=== PATIENT | female | born 1995 | race Caucasian/White ===

== ENCOUNTER 2021-04-30 17:05 | Inpatient (IN) | payer BC ==
[2021-04-30] MEDS ORDERED: Promethazine HCl 25 MG/ML VIAL IM PRN (18:14)
[2021-04-30] MEDS ORDERED: Ibuprofen 800 MG TAB PO PRN (18:14)
[2021-04-30] MEDS ORDERED: hydrALAZINE 20 MG/ML VIAL SLOW IVP PRN (18:14)
[2021-04-30] MEDS ORDERED: Methylergonovine 0.2 MG/ML VIAL IM PRN (18:14)
[2021-04-30] MEDS ORDERED: Misoprostol 200 MCG TAB PR PRN (18:14)
[2021-04-30] MEDS ORDERED: Acetaminophen 500 MG TAB PO PRN (18:14)
[2021-04-30] MEDS ORDERED: Lidocaine 1% (PF) 30 ML VIAL SC PRN (18:14)
[2021-04-30] MEDS ORDERED: HYDROcodone/Acetaminophen 5/325 mg Tablet PO PRN ×2 (18:14)
[2021-04-30] MEDS ORDERED: Carboprost 250 MCG/ML AMP IM PRN (18:14)
[2021-04-30] MEDS ORDERED: Ondansetron PF 4 MG/2 ML Vial IVP PRN (18:14)
[2021-04-30] MEDS ORDERED: Diphenoxylate HCl/Atropine Tablet PO PRN ×2 (18:14)
[2021-04-30] MEDS ORDERED: Butorphanol Tartrate 1 MG/ML VIAL SLOW IVP PRN (18:14)
[2021-04-30] MEDS ORDERED: Zolpidem Tartrate 5 MG TAB PO PRN (18:14)
[2021-04-30] MEDS ORDERED: Docusate 100 MG CAP PO PRN (18:14)
[2021-04-30] MEDS ORDERED: NS w/ Oxytocin 30 units 500 ML IV SCH ×2 (18:15→19:15)
[2021-04-30 18:34] VITALS: BMI 27.6
[2021-04-30] MEDS: Lactated Ringer's 1,000 ML IV SCH (20:14)
[2021-04-30 22:12] LABS: Hemoglobin 8.6 g/dL (12.0-15.5); Mean Corpuscular HGB CONC 29.4 g/dL (32.0-36.0); Mean Corpuscular Hemoglobin 22.5 pg (27.0-33.0); Mean Corpuscular Volume 76.5 fl (81.6-98.3); Mean Platelet Volume 11.1 fl (7.4-10.4); Platelet Count 196 10x3/uL (150-450); RBC Distribution Width 18.9 % (11.5-14.5); Red Blood Cell (RBC) Count 3.83 10x6/uL (3.90-5.03); White Blood Cell (WBC) Count 7.8 10x3/uL (3.5-10.5)
[2021-04-30 22:43] LABS: Syphilis Antibody Nonreactive (Nonreactive); Syphilis Antibody Index 0.03 S/CO (<1.00 Non-Reactive)
[2021-04-30 22:43] LABS: Hep B Surf Ag Non-Reactive S/CO (NonReactive)
[2021-04-30 22:58] LABS: HBSAg Index 0.21 S/CO (0-0.99)
[2021-05-01 04:34] LABS: SARS-CoV-2 NAA Rapid Test Not Detected (NotDetected)
[2021-05-01] MEDS ORDERED: Fentanyl 2 mcg/Bup 0.1% Cadd 100 ML ONE (08:27)
[2021-05-01] MEDS: Lactated Ringer's 1,000 ML IV SCH (10:00)
[2021-05-01] MEDS ORDERED: Misoprostol 200 MCG TAB ONE (10:11)
[2021-05-01] MEDS ORDERED: ePHEDrine Sulfate 50 MG/10 ML VIAL SLOW IVP PRN (10:17)
[2021-05-01] MEDS ORDERED: Hydrocerin (Eucerin) Cream 120 gm Jar TOP PRN (10:17)
[2021-05-01] MEDS ORDERED: diphenhydrAMINE 50 MG/ML VIAL IVP PRN (10:17)
[2021-05-01] MEDS ORDERED: Naloxone HCl 0.4 mg/ml Vial IVP PRN ×2 (10:17)
[2021-05-01] MEDS ORDERED: Acetaminophen 325 MG TAB PO PRN (10:17)
[2021-05-01] MEDS ORDERED: Ondansetron PF 4 MG/2 ML Vial IVP PRN ×2 (10:17→13:10)
[2021-05-01] MEDS ORDERED: Lactated Ringer's 500 ML IV PRN (10:17)
[2021-05-01] MEDS ORDERED: Promethazine HCl 25 MG/ML VIAL IM PRN ×2 (10:17→13:10)
[2021-05-01] MEDS ORDERED: Communication Order-Pharmacy FS SCH (10:30)
[2021-05-01] MEDS ORDERED: Fentanyl 2 mcg/Bupivacaine 0.1% Cassette 100 ML EPIDURAL SCH (10:30)
[2021-05-01] MEDS ORDERED: diphenhydrAMINE 25 MG CAP PO PRN (13:10)
[2021-05-01] MEDS ORDERED: hydrALAZINE 20 MG/ML VIAL SLOW IVP PRN (13:10)
[2021-05-01] MEDS ORDERED: Preparation H Ointment 28 GM TUBE PR PRN (13:10)
[2021-05-01] MEDS ORDERED: Misoprostol 200 MCG TAB VAG PRN (13:10)
[2021-05-01] MEDS ORDERED: Milk Of Magnesia 30 ML UDCUP PO PRN (13:10)
[2021-05-01] MEDS ORDERED: Benzocaine-Menthol 82.5 ML CAN TOP PRN (13:10)
[2021-05-01] MEDS ORDERED: Bisacodyl 10 MG SUPP PR PRN (13:10)
[2021-05-01] MEDS ORDERED: NS w/ Oxytocin 30 units 500 ML IV SCH (13:10)
[2021-05-01] MEDS ORDERED: Methylergonovine 0.2 MG/ML VIAL IM PRN (13:10)
[2021-05-01] MEDS ORDERED: Lanolin Ointment 7 GM TUBE TOP PRN (13:10)
[2021-05-01] MEDS: Ibuprofen 800 MG TAB PO SCH ×2 (14:11→22:06)
[2021-05-01] MEDS: Ferrous Sulfate 325 MG TAB PO SCH (18:18)
[2021-05-01] MEDS ORDERED: Zolpidem Tartrate 5 MG TAB PO PRN (19:01)
[2021-05-01] MEDS ORDERED: HYDROcodone/Acetaminophen 5/325 mg Tablet PO PRN ×2 (19:01)
[2021-05-01] MEDS: Docusate 100 MG CAP PO SCH (22:07)
[2021-05-02 05:05] LABS: Hemoglobin 8.3 g/dL (12.0-15.5); Mean Corpuscular HGB CONC 28.9 g/dL (32.0-36.0); Mean Corpuscular Hemoglobin 22.6 pg (27.0-33.0); Mean Platelet Volume 11.3 fl (7.4-10.4); Platelet Count 194 10x3/uL (150-450); RBC Distribution Width 18.8 % (11.5-14.5); Red Blood Cell (RBC) Count 3.68 10x6/uL (3.90-5.03); White Blood Cell (WBC) Count 10.6 10x3/uL (3.5-10.5)
[2021-05-02] MEDS: Ibuprofen 800 MG TAB PO SCH ×2 (05:26→14:20)
[2021-05-02] MEDS: Docusate 100 MG CAP PO SCH (08:46)
[2021-05-02] MEDS: Ferrous Sulfate 325 MG TAB PO SCH (08:46)
[2021-05-02] MEDS ORDERED: Prenatal Vitamin 1 TAB PO SCH (09:00)
[2021-05-02 11:09] VITALS: BP 103/55; TEMP 97.9
[2021-05-02] MEDS ORDERED: Measles/Mumps/Rubella 10 MCG/0.5 ML VIAL SC ONE (13:10)
[2021-05-02] MEDS ORDERED: Varicella virus, LIVE 0.5 ML VIAL SC ONE (13:10)
[2021-05-02] MEDS ORDERED: Boostrix 0.5 ML (Tdap) VIAL IM ONE (13:10)
== END 2021-05-02 20:12 | disposition home or self-care (01) | DRG 807 ==
LOC: CSHLD 17:05 → UNDODISIN 20:40 → CSHPP 05-01 14:20
PROVIDERS: ADMIT Obstetrics & Gynecology; ATTEND Obstetrics & Gynecology
PROC: 10E0XZZ Delivery of Products of Conception, External Approach (ICD-10-PCS; principal; 2021-05-01)
DX: O24.429 Gestational diabetes mellitus in childbirth, unspecified control (principal); Z37.0 Single live birth; Z3A.39 39 weeks gestation of pregnancy; Z20.822 Contact with and (suspected) exposure to COVID-19
CPT/HCPCS: 36415; 85027; 86780; 86850; 86900; 86901; 87340; J2590; J7120; U0002